=== PATIENT | female | born 1935 | race Caucasian/White ===

== ENCOUNTER → 2018-06-21 | Outpatient (CLI) | payer OTHER ==
[~2018-06-21] MED LIST: ACETAMINOPHEN-1 EAC1 PO; HYDROCHLOROTHIAZIDE; KEFLEX500 MG PO; LEVOTHYROXINE; LISINOPRIL; TRAZODONE
== END ==
LOC: M.LAB 04:41
DX: Z01.812 Encounter for preprocedural laboratory examination (principal); I10 Essential (primary) hypertension; E03.9 Hypothyroidism, unspecified